=== PATIENT | female | born 1950 | race Caucasian/White ===

== ENCOUNTER 2017-11-25 22:34 | Inpatient (IN) | payer MEDICARE, OTHER ==
[~2017-11-25] VITALS: Ht 167.6 cm; Wt 106.2 kg
[2017-11-25 23:42] LABS: BASOPHILS % 0.2 % (0.0-1.0); EOSINOPHILS % 0.2 % (0.0-6.0); HEMATOCRIT 43.3 % (34.2-44.1); HEMOGLOBIN 14.6 g/dL (12.0-16.0); LYMPHOCYTES # (AUTO) 1.1 (1.0-3.2); LYMPHOCYTES % 8.6 % (18.0-39.1); MEAN CORPUSCULAR HEMOGLOBIN 28.6 pg (28-32); MEAN CORPUSCULAR HGB CONC 33.7 g/dL (31-35); MEAN CORPUSCULAR VOLUME 84.9 fL (81-99); MONOCYTES # (AUTO) 0.4 (0.2-0.8); MONOCYTES % 2.7 % (4.4-11.3); NEUTROPHILS # (AUTO) 11.6 (2.1-6.9); NEUTROPHILS % 87.9 % (38.7-80.0); PLATELET COUNT 227 x10e3/uL (140-360); RED CELL DISTRIBUTION WIDTH 12.4 % (11.7-14.4)
[2017-11-26] VITALS (9 sets, daily range): BP systolic 117–149; BP diastolic 58–95
[2017-11-26] LABS: ALANINE AMINOTRANSFERASE 23 IU/L (0-55); ALBUMIN 3.9 g/dL (3.5-5.0); ALKALINE PHOSPHATASE 88 IU/L (40-150); ANION GAP 17.6 mmol/L (8-16); BLOOD UREA NITROGEN 19 mg/dL (7-26); BUN/CREATININE RATIO 21 (6-25); CARBON DIOXIDE 24 mmol/L (22-29); CHLORIDE 97 mmol/L (98-107); CREATININE, SERUM 0.89 mg/dL (0.57-1.11); EST GLOMERULAR FILTRATION RATE > 60 ML/MIN (60-); GLUCOSE 375 mg/dL (74-118); MAGNESIUM 1.8 MG/DL (1.3-2.1); POTASSIUM 4.6 mmol/L (3.5-5.1); SODIUM 134 mmol/L (136-145)
[2017-11-26 00:02] LABS: BILIRUBIN,URINE NEGATIVE (NEGATIVE); CLARITY,URINE CLEAR (CLEAR); COLOR,URINE YELLOW (YELLOW); KETONES,URINE 2+ (NEGATIVE); LEUKOCYTE ESTERASE ,URINE NEGATIVE (NEGATIVE); NITRITE,URINE NEGATIVE (NEGATIVE); PROTEIN,URINE DIPSTICK TRACE (NEGATIVE); URINE UROBILINOGEN 0.2 mg/dL (0.2 - 1)
[2017-11-26] MEDS ORDERED: ONDANSETRON HCL INJ 2 MG/ML VIAL IV STA (00:10)
[2017-11-26] MEDS ORDERED: MORPHINE SULFATE 2 MG/ML SYR IV STA (00:10)
[2017-11-26] MEDS ORDERED: SODIUM CHLORIDE 0.9% 1000ML 1,000 ML IV STA (00:10)
[2017-11-26 00:15] LABS: BACTERIA,URINE RARE /HPF; EPITHELIAL CELLS,URINE RARE /LPF; RBC,URINE 21-50 /HPF (0-5)
[2017-11-26] MEDS ORDERED: KETOROLAC TROMETHAMINE 30 MG/ML VIAL IV STA (00:53)
--- NOTE | 2017-11-26 01:22 | Diagnostic Imaging Report ---
EXAM: CT ABDOMEN/PELVIS WO DATE: 11/26/2017 11:19 PM INDICATION: \S\LEFT FLAKN PAIN, SIG HX KIDNEY STONES \[id number] \S\0035 \S\Y COMPARISON: E4 2016 TECHNIQUE: The abdomen and pelvis were scanned using a multidetector helical scanner. Coronal and sagittal reformations were obtained. IV Contrast: 0 ml Isovue 300/370 FINDINGS: Lack of IV contrast decreases sensitivity in evaluating abdominal and pelvic organs. LOWER THORAX: No consolidations LIVER/BILIARY: Unremarkable noncontrast appearance. GALLBLADDER: Unremarkable SPLEEN: Nonenlarged. Incidental splenic granulomas. PANCREAS: Unremarkable ADRENALS: No nodules KIDNEYS: No right renal calculi or hydronephrosis. Punctate left inferior renal calculus. Mild left hydronephrosis related to a 1 cm proximal ureteral calculus (CC dimension, 4-5 mm axial dimension). Associated perinephric and inflammatory changes. GI TRACT: No wall thickening or evidence of obstruction. Normal appendix. VESSELS: Mild atherosclerotic calcifications. PERITONEUM/RETROPERITONEUM: No free air or fluid LYMPH NODES: No lymphadenopathy REPRODUCTIVE ORGANS/BLADDER: Hysterectomy. Decompressed bladder. SOFT TISSUES: Unremarkable BONES: Multilevel degenerative changes with grade 1 anterolisthesis of L4 over L5. IMPRESSION: Mild left hydronephrosis and inflammatory changes related to 1 cm proximal ureteral calculus. Signed by: Dr Jennifer Mesa MD on 11/26/2017 1:19 AM
[2017-11-26] MEDS ORDERED: DEXTROSE 50% SYRINGE 50 ML IV PRN (02:45)
[2017-11-26] MEDS ORDERED: MORPHINE SULFATE 2 MG/ML SYR IV PRN (02:45)
[2017-11-26] MEDS ORDERED: ONDANSETRON HCL INJ 2 MG/ML VIAL IV PRN (02:45)
[2017-11-26] MEDS: SODIUM CHLORIDE 0.9% 1000ML 1,000 ML IV SCH ×2 (05:00→21:58)
[2017-11-26] MEDS: INSULIN REGULAR, HUMAN 100 UNIT/1 ML 3ML VIAL SQ SCH ×4 (07:30→20:03)
--- NOTE | 2017-11-26 07:41 | Consultation ---
DATE OF CONSULTATION: November 26, 2017 UROLOGY CONSULTATION REASON FOR CONSULTATION: Kidney stones. HISTORY OF PRESENT ILLNESS: Ms. Macario is a very pleasant noncompliant 66-year-old female patient who I have seen previously in 2016. The patient was admitted to the hospital with acute sharp and severe left-sided flank pain. Was found to have a very large obstructing left ureteral calculus. She denied fevers nor chills. Denied nausea. No vomiting. PAST MEDICAL HISTORY: Multiple kidney stones, prior patient of Dr. Gonzalez and Dr. Berto Adames, as well as myself. Diabetes mellitus and kidney stones. PAST SURGICAL HISTORY: Hysterectomy and stone surgeries. MEDICATIONS: Please see MAR. ALLERGIES: NKDA. SOCIAL HISTORY: Denied smoking or drinking. FAMILY HISTORY: Denied urologic stones. No malignancies. REVIEW OF SYSTEMS: Noncontributory to the above. All 12 systems reviewed. PHYSICAL EXAMINATION GENERAL: Elderly female in no acute distress. VITALS: Currently, temperature 96.3, pulse 70, respirations 19, blood pressure 139/95. HEENT: Her sclerae are anicteric. NECK: Supple. BACK: With left-sided costovertebral angle tenderness bilaterally. ABDOMEN: Soft. It is nontender. It is nondistended. No palpable mass. No palpable hernias. No palpable lymphadenopathy. : Normal female external genitalia. EXTREMITIES: Without edema. No cyanosis or clubbing. PSYCH: Alert and appropriate mood. SKIN: Intact. Normal color. PERTINENT LABORATORY DATA: CT scan revealing a 1 cm proximal left ureteral calculus and left hydronephrosis. Urinalysis with 21-50 red blood cells per high power field, 3+ glucose, positive ketones. Sodium 134, potassium 4.6, chloride 97, bicarb 24, BUN 19, creatinine 0.99, glucose 375. White blood cell count 13,180, hemoglobin 14, hematocrit 43, and platelet count 227,000. IMPRESSION 1. Leukocytosis. 2. Renal colic. 3. Left hydronephrosis. 4. Left ureteral calculus. 5. Hyponatremia. 6. Hypertension. 7. Microscopic hematuria. 8. Glycosuria. PLAN: Trial of passage. Patient will need stenting. Thank you for allowing me to participate in the care of the patient. Will be happy to follow along with you. Job#: [id number] ELAINA
[2017-11-26 08:14] LABS: CHOL/HDL RATIO 4.6 (3.0-3.6)
[2017-11-26] MEDS ORDERED: MORPHINE SULFATE INJ 4 MG/ML INJ IV PRN (08:15)
--- NOTE | 2017-11-26 08:32 | History and Physical ---
PRIMARY CARE PHYSICIAN: None CHIEF COMPLAINT: Left flank pain. HISTORY OF PRESENT ILLNESS: This is a 66-year-old woman with a history of kidney stones now developing left flank and left abdominal pain that prompted her visit to the hospital. She also has nausea and vomiting. This is an ongoing problem for 1 day, but previously was intermittent for the past week. Here she was found to have ureterolithiasis and hydronephrosis, and admitted for further evaluation and management. PAST MEDICAL HISTORY: Diabetes mellitus, kidney stones. PAST SURGICAL HISTORY: Knee surgery, hysterectomy, kidney stones. ALLERGIES: PER ELECTRONIC MEDICAL RECORD. FAMILY HISTORY/SOCIAL HISTORY: Patient is . She has 3 children. No alcohol, illicits or cigarettes. MEDICATIONS: Per electronic medical record. REVIEW OF SYSTEMS: Denies any dizziness, chest pain, shortness of breath, fever, chills, sweats, nausea, vomiting, diarrhea, headache, leg pain. PHYSICAL EXAMINATION VITAL SIGNS: Reviewed. GENERAL: A tired-appearing woman resting in bed. HEENT: Anicteric. Pupils respond to light. No oral lesions. CARDIOVASCULAR: Normal S1 and S2. LUNGS: Moderate breath sounds. ABDOMEN: Soft and nondistended. She has mild tenderness in the left midabdomen. Left flank is tender. EXTREMITIES: No edema or calf tenderness. NEUROLOGICAL: Alert and oriented times 3. Moving all extremities. SKIN: Dry. PSYCHIATRIC: Flat affect. LABS: Reviewed. MEDICATIONS: Reviewed. ASSESSMENT: A 66-year-old woman with: 1. Left ureterolithiasis. 2. Left hydronephrosis. 3. Diabetes mellitus, type 2. 4. Obesity. 5. Left flank pain. PLAN 1. She has a 1 cm proximal ureteral stent on the left. Will continue IV fluids. Urology has been consulted. 2. Will obtain hemoglobin A1c and lipid panel. 3. Continue IV fluids. 4. Add Flomax. 5. Follow up urology recommendations. 6. Add SCDs for DVT prophylaxis. Job#: [id number] ELAINA
[2017-11-26] MEDS: TAMSULOSIN HCL 0.4 MG CAP PO SCH ×2 (09:00→20:03)
[2017-11-26] MEDS ORDERED: IOPAMIDOL 300MG/ML 50ML INFUS..BTL IV ONE (11:35)
[2017-11-26] MEDS ORDERED: INSULIN REGULAR, HUMAN 100 UNIT/1 ML 3ML VIAL ONE (11:56)
--- NOTE | 2017-11-26 13:23 | Operative Report ---
DATE OF PROCEDURE: November 26, 2017 PREOPERATIVE DIAGNOSES 1. Microscopic hematuria. 2. Left-sided hydronephrosis. POSTOPERATIVE DIAGNOSES 1. Microscopic hematuria. 2. Left-sided hydronephrosis. PROCEDURES 1. Cystourethroscopy with right ureteral catheterization and right retrograde pyelogram (entirely separate procedure for diagnosis of microscopic hematuria). 2. Cystourethroscopy with insertion of a left indwelling ureteral stent (entirely separate procedure for the diagnosis of left hydronephrosis). 3. Supervision of fluoroscopy. 4. Interpretation of retrograde pyelography. ANESTHESIA: General. ESTIMATED BLOOD LOSS: Minimal. COMPLICATIONS: None. INDICATIONS FOR PROCEDURE: Ms. Macario is a very pleasant, 66-year-old female with a history of renal calculus. She and I had a long discussion regarding the alternatives, risks and benefits, including doing nothing, stent placement, percutaneous nephrostomy. She voiced an understanding of the options, the alternatives, and the risks and benefits, and she elected to proceed with stent, voicing an explicit understanding that the stent is a temporary indwelling device and must be removed. Failure to do so could lead to encrustation, infection, inflammation, actual loss of the kidney and even . She elected to proceed. PROCEDURE IN DETAIL: After informed consent was obtained, the patient was taken to the operative suite and placed supine on the operating table. She underwent general anesthesia by the anesthesia service. She was placed in the dorsal lithotomy position. She was sterilely prepped and draped in the standard fashion for cystoscopy. A 22.5-Finnish cystoscope was inserted per urethra. A normal urethra was noted. Panendoscopy of the bladder revealed no tumors and no stones. Both ureteral orifices were in their normal anatomic location and position, and only the right was seen to efflux urine. Bilateral retrograde pyelograms were performed. The right was normal. The left revealed a very large, approximately 1 cm, proximal filling defect and mild left hydronephrosis. A 6 x 24 ureteral stent was deployed with a coil in the UPJ and a coil in the bladder. The bladder was drained. The patient was awakened from anesthesia and transported to the recovery room in excellent condition. SUPERVISION OF FLUOROSCOPY AND INTERPRETATION OF RETROGRADE PYELOGRAPHY: I was present throughout the entire procedure and supervised the use of fluoroscopy. There was no radiologist present. Attention was turned to the left ureteral orifice and right ureteral orifice, which were catheterized with a 5-Finnish, open-ended catheter. Retrograde pyelogram was performed. The right revealed delicate ureter and delicate pelvicaliceal system. The left revealed a 1-cm proximal ureteral filling defect and stent in good position. IMPRESSION 1. Left proximal ureteral calculus poorly visualized. 2. Hydronephrosis. 3. Left ureteral stent in good position. 4. Normal right retrograde pyelogram. Job#: [id number]
[2017-11-26] MEDS ORDERED: PROPOFOL IV EMULSION 10 MG/ML 50 ML VIAL ONE (17:09)
[2017-11-26] MEDS ORDERED: LIDOCAINE HCL 2% LOCAL INJ 5 ML SDV VIAL INJ ONE (17:09)
[2017-11-26] MEDS ORDERED: MIDAZOLAM HCL 2 MG/2 ML VIAL ONE (17:23)
[2017-11-27 04:54] VITALS: BP 147/67
[2017-11-27 05:09] LABS: BASOPHILS % 0.4 % (0.0-1.0); EOSINOPHILS # (AUTO) 0.1 (0.0-0.4); EOSINOPHILS % 1.9 % (0.0-6.0); HEMATOCRIT 36.3 % (34.2-44.1); HEMOGLOBIN 11.8 g/dL (12.0-16.0); LYMPHOCYTES # (AUTO) 2.7 (1.0-3.2); MEAN CORPUSCULAR HEMOGLOBIN 28.5 pg (28-32); MEAN CORPUSCULAR HGB CONC 32.5 g/dL (31-35); MEAN CORPUSCULAR VOLUME 87.7 fL (81-99); MONOCYTES # (AUTO) 0.4 (0.2-0.8); NEUTROPHILS # (AUTO) 3.6 (2.1-6.9); NEUTROPHILS % 52.4 % (38.7-80.0); PLATELET COUNT 166 x10e3/uL (140-360); RED BLOOD COUNT 4.14 x10e6/uL (3.6-5.1); RED CELL DISTRIBUTION WIDTH 12.9 % (11.7-14.4)
[2017-11-27 05:40] LABS: ANION GAP 13.6 mmol/L (8-16); BLOOD UREA NITROGEN 12 mg/dL (7-26); BUN/CREATININE RATIO 18 (6-25); CALCIUM 8.5 mg/dL (8.4-10.2); CARBON DIOXIDE 25 mmol/L (22-29); CHLORIDE 107 mmol/L (98-107); CREATININE, SERUM 0.65 mg/dL (0.57-1.11); EST GLOMERULAR FILTRATION RATE > 60 ML/MIN (60-); GLUCOSE 191 mg/dL (74-118); POTASSIUM 3.6 mmol/L (3.5-5.1); SODIUM 142 mmol/L (136-145)
[2017-11-27] MEDS: INSULIN REGULAR, HUMAN 100 UNIT/1 ML 3ML VIAL SQ SCH ×3 (07:30→16:30)
[2017-11-27] MEDS ORDERED: DEXTROSE 50% SYRINGE 50 ML IV PRN (08:15)
--- NOTE | 2017-11-27 08:21 | Progress Note ---
DATE: November 27, 2017 TIME: 7:59 a.m. OVERNIGHT: No events. REVIEW OF SYSTEMS: Denies any dizziness, chest pain, shortness of breath, fever, chills, sweats, nausea, vomiting, diarrhea, back pain, headache, blurred vision. VITAL SIGNS: Reviewed. PHYSICAL EXAMINATION GENERAL: A tired-appearing woman resting in bed. HEENT: Anicteric. CARDIOVASCULAR: Normal S1 and S2. LUNGS: Moderate breath sounds. ABDOMEN: Soft. Left flank tenderness is less. EXTREMITIES: No edema or calf tenderness. NEUROLOGICAL: Alert and oriented times 3. Moving all extremities. SKIN: Dry. PSYCHIATRIC: Flat affect. LABS: Reviewed. MEDICATIONS: Reviewed. ASSESSMENT: A 66-year-old woman. 1. Left ureterolithiasis. 2. Left hydronephrosis. 3. Diabetes mellitus, type 2. Hemoglobin A1c 11.8, low-density lipoprotein 128, and triglycerides 235. 4. Obesity. 5. Left flank pain. 6. Hyperlipidemia. PLAN 1. Continue IV fluids. 2. Follow up urology recommendations. 3. Continue Flomax. 4. Will add statin for hyperlipidemia. 5. Will also plan to start metformin upon discharge. In the meantime, will use sliding-scale insulin. Will use a diabetic diet. Job#: [id number]
[2017-11-27] MEDS ORDERED: NIFEDIPINE CR 30 MG TAB PO SCH (09:00)
[2017-11-27 09:05] VITALS: BP 161/67
[2017-11-27] MEDS: TAMSULOSIN HCL 0.4 MG CAP PO SCH (09:21)
[2017-11-27] MEDS: SODIUM CHLORIDE 0.9% 1000ML 1,000 ML IV SCH (09:21)
[2017-11-27 09:45] VITALS: BP 161/68
[2017-11-27] MEDS ORDERED: INSULIN REGULAR, HUMAN 100 UNIT/1 ML 3ML VIAL SQ SCH (11:30)
[2017-11-27] MEDS ORDERED: METFORMIN HCL 500 MG TAB PO SCH (17:00)
[2017-11-27 17:43] VITALS: BP 158/67
[2017-11-27] MEDS ORDERED: PRAVASTATIN 20 MG TAB PO SCH (21:00)
== END 2017-11-27 17:55 | disposition home or self-care (01) | DRG 660 ==
LOC: ER 22:34 → ERHOLD 11-26 03:35 → MED/SURG2 11-26 04:33
PROVIDERS: ADMIT Internal Medicine; ATTEND Internal Medicine
PROC: 0T768ZZ Dilation of Right Ureter, Via Natural or Artificial Opening Endoscopic (ICD-10-PCS; 2017-11-26)
PROC: BT141ZZ Fluoroscopy of Kidneys, Ureters and Bladder using Low Osmolar Contrast (ICD-10-PCS; 2017-11-26)
PROC: 0T9B8ZZ Drainage of Bladder, Via Natural or Artificial Opening Endoscopic (ICD-10-PCS; 2017-11-26)
PROC: 0T778DZ Dilation of Left Ureter with Intraluminal Device, Via Natural or Artificial Opening Endoscopic (ICD-10-PCS; principal; 2017-11-26 12:05)
DX: N13.2 Hydronephrosis with renal and ureteral calculous obstruction (principal); E87.1 Hypo-osmolality and hyponatremia; E11.65 Type 2 diabetes mellitus with hyperglycemia; E66.9 Obesity, unspecified; Z68.37 Body mass index [BMI] 37.0-37.9, adult; E78.5 Hyperlipidemia, unspecified; Z87.442 Personal history of urinary calculi; R31.29 Other microscopic hematuria; I10 Essential (primary) hypertension
CPT/HCPCS: 36415; 74176; 74420; 80048; 80053; 80061; 81001; 82948; 83036; 83735; 85025; 87086; 96374; 96375; 99284; C1874; J1885; J2001; J2250; J2270; J2405; J7030

== ENCOUNTER → 2017-12-06 | Day surgery (SDC) | payer MEDICARE, OTHER ==
[2017-12-05 11:23] LABS: BASOPHILS % 0.3 % (0.0-1.0); EOSINOPHILS # (AUTO) 0.2 (0.0-0.4); EOSINOPHILS % 2.2 % (0.0-6.0); HEMATOCRIT 41.3 % (34.2-44.1); HEMOGLOBIN 13.5 g/dL (12.0-16.0); LYMPHOCYTES # (AUTO) 2.4 (1.0-3.2); LYMPHOCYTES % 33.1 % (18.0-39.1); MEAN CORPUSCULAR HEMOGLOBIN 28.6 pg (28-32); MEAN CORPUSCULAR HGB CONC 32.7 g/dL (31-35); MEAN CORPUSCULAR VOLUME 87.5 fL (81-99); MONOCYTES # (AUTO) 0.5 (0.2-0.8); MONOCYTES % 6.6 % (4.4-11.3); NEUTROPHILS # (AUTO) 4.1 (2.1-6.9); NEUTROPHILS % 57.7 % (38.7-80.0); PLATELET COUNT 218 x10e3/uL (140-360); RED BLOOD COUNT 4.72 x10e6/uL (3.6-5.1); RED CELL DISTRIBUTION WIDTH 12.5 % (11.7-14.4)
--- NOTE | 2017-12-05 15:27 | Diagnostic Imaging Report ---
EXAMINATION: PA and lateral views of the chest. COMPARISON: None CLINICAL HISTORY: Preadmit for left stent removal DISCUSSION: Lines/tubes: None. Lungs: The lungs are well inflated and clear. There is no evidence of pneumonia or pulmonary edema. Pleura: There is no pleural effusion or pneumothorax. Heart and mediastinum: Cardiomediastinal silhouette is unremarkable. Pulmonary vasculature is normal. Bones and soft tissues: No acute bony abnormalities. Mild age-appropriate degenerative changes in the thoracic spine IMPRESSION: No acute cardiopulmonary abnormalities. Signed by: Dr. Sonny Russ M.D. on 12/05/2017 3:23 PM
[~2017-12-06] MED LIST: ACETAMINOPHEN 1000 MG/100 ML 100 ML IV ONE; ADVIL; ASPIRIN81 MG; CEFTRIAXONE SOD 1 GM VIAL ONE; DEXAMETHASONE SOD PHOS INJ 4 MG/ML VIAL ONE; FENTANYL CITRATE/PF 100MCG/2 ML INJ ONE; HYDROMORPHONE 1MG/1ML INJ ONE; IOPAMIDOL 300MG/ML 50ML INFUS..BTL IV ONE; LIDOCAINE HCL 2% LOCAL INJ 5 ML SDV VIAL INJ ONE; METOCLOPRAMIDE HCL 10 MG/2ML VIAL ONE; MIDAZOLAM HCL 2 MG/2 ML VIAL ONE; MORPHINE SULFATE 2 MG/ML SYR ONE; MULTIVITAMINS1 EAC7; ONDANSETRON HCL INJ 2 MG/ML VIAL ONE; PROPOFOL IV EMULSION 10 MG/ML 20 ML VIAL ONE; SEVOFLURANE INHAL SOLN 250 ML PEN BTL ONE
[2017-12-06 13:40] VITALS: BP 154/69
--- NOTE | 2017-12-06 15:10 | Operative Report ---
PREOPERATIVE DIAGNOSES 1. Indwelling left ureteral stent. 2. Left ureteral calculus. 3. Left hydronephrosis. POSTOPERATIVE DIAGNOSES 1. Indwelling left ureteral stent. 2. Left ureteral calculus. 3. Left hydronephrosis. PROCEDURES 1. Cystourethroscopy with complicated removal of left ureteral stent (entirely separate procedure for encrusted left ureteral stent). 2. Left-sided ureteroscopy with laser lithotripsy (entirely separate procedure for left ureteral calculus). 3. Supervision of fluoroscopy. 4. Interpretation of retrograde pyelography. ANESTHESIA: General. ESTIMATED BLOOD LOSS: Minimal. COMPLICATIONS: None. INDICATIONS: Ms. Macario is a 66-year-old female, presenting with left ureteral stent and stone. She and I had a long discussion regarding the alternatives, risks and benefits, including doing nothing, shock-wave lithotripsy, ureteroscopy, percutaneous surgery, open surgery. She voiced understanding of the options, alternatives, risks and benefits, and elected to proceed. PROCEDURE IN DETAIL: After informed consent was obtained, the patient was taken to the operative suite, placed supine on the operating table and underwent general anesthesia by the anesthesia service. She was then placed in the dorsal lithotomy position and sterilely prepped and draped in the standard fashion for cystoscopy. A 22.5-Malay cystoscope was inserted per urethra and a normal urethra was noted. Panendoscopy of the bladder revealed no tumors. Stent was seen extruding from the left ureteral orifice, grasped and attempt made to catheterize was failed. Guidewire was inserted per ureteral orifice seen to coil at the level of the renal pelvis on nephroscopy. The ureteroscope was driven to the level of the offending ureteral stone and with 365 micron laser fiber stone was obliterated, fragments smaller within the ureteroscope. A retrograde pyelogram was performed through the scope revealing no evidence of obstruction, collecting system drained promptly. Safety wire was removed. Bladder was drained. The patient was awoken from anesthesia and transported to the recovery room in excellent condition. SUPERVISION OF FLUOROSCOPY AND INTERPRETATION OF RETROGRADE PYELOGRAPHY: I was present throughout the entire procedure, and supervised the use of fluoroscopy as there was no radiologist present at any time in this procedure. Attention was turned toward the left ureteral orifice, catheterized and a retrograde pyelogram was performed revealing interim removal of left ureteral stent, doubt ureter, and removal of left ureteral calculus, promptly drains collecting system. Job#: [id number] RTY
== END | disposition home or self-care (01) ==
LOC: OR 05:43
PROVIDERS: ATTEND Urology
DX: Z96.0 Presence of urogenital implants (principal); N13.2 Hydronephrosis with renal and ureteral calculous obstruction; E11.9 Type 2 diabetes mellitus without complications; K21.9 Gastro-esophageal reflux disease without esophagitis; Z01.810 Encounter for preprocedural cardiovascular examination; Z01.812 Encounter for preprocedural laboratory examination; Z01.811 Encounter for preprocedural respiratory examination
CPT/HCPCS: 36415 ×2; 52315; 52353; 71046; 74420; 82948; 85025; 93005; J0696; J1100; J1170; J2001; J2250; J2270; J2405; J2765; Q9967

== ENCOUNTER 2018-12-13 23:22 | Observation (INO) | payer MEDICARE, OTHER ==
[~2018-12-13] VITALS: Ht 167.6 cm; Wt 96.0 kg
[~2018-12-13 23:22] MED LIST changes: -ACETAMINOPHEN 1000 MG/100 ML 100 ML IV ONE; -CEFTRIAXONE SOD 1 GM VIAL ONE; -DEXAMETHASONE SOD PHOS INJ 4 MG/ML VIAL ONE; -FENTANYL CITRATE/PF 100MCG/2 ML INJ ONE; -HYDROMORPHONE 1MG/1ML INJ ONE; -IOPAMIDOL 300MG/ML 50ML INFUS..BTL IV ONE; -LIDOCAINE HCL 2% LOCAL INJ 5 ML SDV VIAL INJ ONE; -METOCLOPRAMIDE HCL 10 MG/2ML VIAL ONE; -MIDAZOLAM HCL 2 MG/2 ML VIAL ONE; -MORPHINE SULFATE 2 MG/ML SYR ONE; -ONDANSETRON HCL INJ 2 MG/ML VIAL ONE; -PROPOFOL IV EMULSION 10 MG/ML 20 ML VIAL ONE; -SEVOFLURANE INHAL SOLN 250 ML PEN BTL ONE
--- OUTSIDE RECORDS SUMMARY | 2018-12-13 23:25 | XMS REPORT | Summary of Care ---
Author Author [facility] - Health Organization [facility] Address Unknown Phone Unavailable Care Team Providers Care Teamcenter Solution Architect Name Role Phone Pcp, Patient Does Not Have A PCP Reason for Referral * (Routine) Referred By Contact Referred To Contact Status Reason Specialty Diagnoses / Procedures Nivia Russo FNP [id number] [address] New Request Cardiology Diagnoses Elevated blood pressure reading without diagnosis of hypertension Heart murmur P rocedures CONSULT/REFERRAL CARDIOLOGY Reason for Visit * Reason Comments Rash vagina Encounter Details Care Team Description Date Type Department Nivia Russo FNP [id number] [address] Rash and other nonspecific skin eruption (Primary Dx); Elevated blood pressure reading without diagnosis of hypertension; Dysuria; Heart murmur; Glucose found in urine on examination; Postmenopausal atrophic vaginitis; Vaginal irritation; Asymptomatic microscopic hematuria 10/27/2018 Office Visit [facility], [address], [address] [place] [address] Allergies Comments Active Allergy Reactions Severity Noted Date Codeine Nausea and/or 10/27/2018 Vomiting documented as of this encounter (statuses as of 11/11/2018) Medications End Date Status Medication Sig Dispensed Refills Start Date Active VIT Take by 0 A,C,P-GLML-QZMGMZ-LUT-NAVDEEP mouth. X ORAL Active cholecalciferol, vitamin Take by 0 D3, (D3-2000 ORAL) mouth. Active Multivitamins with Take by 0 Fluoride (MULTI-VITAMIN mouth. ORAL) documented as of this encounter (statuses as of 11/11/2018) Active Problems No known active problemsdocumented as of this encounter (statuses as of 11/11/2018) Social History Date Tobacco Use Types Packs/Day Years Used Never Smoker Smokeless Tobacco: Never Used Drinks/Week oz/Week Comments Alcohol Use Never Alcohol Habits Answer Date Recorded How often do you have a drink containing alcohol? Never 10/27/2018 How many drinks containing alcohol do you have on Not asked a typical day when you are drinking? How often do you have six or more drinks on one Not asked occasion? Sex Assigned at Date Recorded Not on file Industry Job Start Date Occupation Not on file Not on file Not on file Travel End Travel History Travel Start No recent travel history available. documented as of this encounter Last Filed Vital Signs Reading Time Taken Comments Vital Sign 146/73 10/27/2018 8:29 AM CDT Blood Pressure 76 10/27/2018 8:24 AM CDT Pulse - - Temperature - - Respiratory Rate - - Oxygen Saturation - - Inhaled Oxygen Concentration 98 kg (216 lb) 10/27/2018 8:24 AM CDT Weight 167.6 cm (5' 6") 10/27/2018 8:24 AM CDT Height 34.86 10/27/2018 8:24 AM CDT Body Mass Index documented in this encounter Patient Instructions * Patient Instructions* Nivia Russo, NIDIA - 10/27/2018 8:30 AM CDT Taking Your Blood Pressure Blood pressure is the force of blood against the artery wall as it moves from th e heart through the blood vessels. You can take your own blood pressure reading using a digital monitor. Take your readings the same each time, using the same a rm. Take readings as often as your healthcare provider instructs. About blood pressure monitors Blood pressure monitors are designed for certain ages and cases. You can find mo nitors for older adults, for women, and for children. Make sure the one you choose is the right one for your age and situation. The [employer] [employer] recommends an automatic cuff monitor that fits on your upper arm (bicep). The cuff should fit your arm size. A cuff thats too large or too small will not give an accurate reading. Measure around your upper arm to find your size. Monitors that attach to your finger or wrist are not as accurate as monitors for your upper arm. Ask your healthcare provider for help in choosing a monitor. Bring your monitor to your next provider visit if you need help in using it the correct way. The steps below are general instructions for using an automatic digital monitor. Step 1. Relax Take your blood pressure at the same time every day, such as in the morning o r evening, or at the time your healthcare provider recommends. Wait at least a half-hour after smoking, eating, or exercising. Don't drink c offee, tea, soda, or other caffeinated beverages before checking your blood pres sure. Sit comfortably at a table with both feet on the floor. Do not cross your leg s or feet. Place the monitor near you. Rest for a few minutes before you begin. Step 2. Wrap the cuff Place your arm on the table, palm up. Your arm should be at the level of your heart. Wrap the cuff around your upper arm, just above your elbow. Its best done on bare skin, not over clothing. Most cuffs will indicate where the brachia l artery (the blood vessel in the middle of the arm at the inner side of the elb ow) should line up with the cuff. Look in your monitor's instruction booklet for an illustration. You can also bring your cuff to your healthcare provider and h ave them show you how to correctly place the cuff. Step 3. Inflate the cuff Push the button that starts the pump. The cuff will tighten, then loosen. The numbers will change. When they stop changing, your blood pressure reading will appear. Take 2 or 3 readings one minute apart. Step 4. Write down the results of each reading Write down your blood pressure numbers for each reading. Note the date and ti me. Keep your results in one place, such as a notebook. Even if your monitor has a built-in memory, keep a hard copy of the readings. Remove the cuff from your arm. Turn off the machine. Bring your blood pressure records with your healthcare providers at each visi t. If you start a new blood pressure medicine, note the day you started the new medicine. Also note the day if you change the dose of your medicine. This inform ation goes on your blood pressure recording sheet. This will help your healthcar e provider monitor how well the medicine changes are working. Ask your healthcare provider what numbers should prompt you to call him or he r. Also ask what numbers should prompt you to get help right away. Date Last Reviewed: 02/07/201619997755-3222 [employer]. [address] [place] [address]00 7. All rights reserved. This information is not intended as a substitute for pro fessional medical care. Always follow your healthcare professional's instruction s. Atrophic Vaginitis Atrophic vaginitis means the de la cruz of your vagina have become thin. This happens when your body makes too little of the hormone estrogen. Menopause or surgical removal of the ovaries are the most common causes for a drop in estrogen. Breast feeding can also cause the hormone level to drop. Symptoms of atrophic vaginitis include: Dryness, soreness, burning, or itching in the vagina Vaginal discharge Sex can be uncomfortable, even painful. After sex, you may have bleeding from yo ur vagina. You may also have burning or pain when you urinate. Home care Your healthcare provider may recommend 1 or more of these as treatment: Vaginal creams, lotions, and lubricants.These products help relieve vaginal dryness. They dont need a prescription. They can be found in the personal ca re section of most pharmacies. Creams and lotions are used daily to help keep th e vagina moist. Lubricants help reduce dryness and pain during sex. Choose water -based lubricants. Dont use petroleum jelly, mineral oil, or other oils. Thes e increase the chance of infection. Hormone therapy (HT).HT increases the amount of estrogen in your body. This can help manage or relieve symptoms. HT can be given in pill form. It may be gi harley as a lotion, cream, ring put into the vagina, or a patch on the skin. The ri sks and benefits of HT vary for each woman. For instance, your risk may be highe r if you have had breast cancer. Discuss this treatment with your healthcare pro vider. Not every woman can use HT. You dont need to give up (abstain from) sex. In fact, regular sex can help ke ep vaginal tissues healthy. Take steps to make sex more comfortable by using dexter er-based lubricants. Preventing infections Atrophic vaginitis makes an infection of the vagina or the urinary tract more li zahida. To help reduce your risk: Keep your genitals clean. When you bathe, wash the outside of your vagina wit h mild soap and water. Clean gently between the folds of your vagina. Wipe from front to back after a bowel movement. Dont douche unless your healthcare provider tells you to. Avoid scented toilet paper, scented vaginal sprays, and scented tampons. Avoid wearing clothes that are tight in the crotch. These include pantyhose, jeans, and leggings. Wear cotton underwear. Change it every day. Follow-up care Follow up with your healthcare provider, or as advised. When to seek medical advice Call your health care provider right away if any of these occur: Fever of 100.4F (38C) or higher, or as directed by your healthcare provid er Symptoms dont go away or get worse even with treatment Vaginal area swells or becomes painful Vaginal area bleeds, but not because of your period Bad-smelling discharge from the vagina Pain or burning when you urinate or you have trouble passing urine Open sores develop around vagina Date Last Reviewed: 03/08/201619998359-4606 [employer]. [address] [place] [address] 7. All rights reserved. This information is not intended as a substitute for pro fessional medical care. Always follow your healthcare professional's instruction s. documented in this encounter Progress Notes * Nivia Russo FNP - 10/27/2018 8:30 AM CDT Cc: Chief Complaint Patient presents with Rash vagina HPI Ana Macario is a 67 year old female she has a past medical history of Breast mass (1979) and Kidney stones. She is here today for rash and irritation around the vulva. She denies vaginal d ischarge and vaginal burning, but admits to vaginal dryness. Has some pain with urination. Denies abdominal pain, low back pain, n/v/d, fever. She has tried mon istat OTC 3 day treatment without relief. No other topical treatments. Her BP is elevated today. Denies history of HTN. Denies chest pain, blurred visi on, GAR, dizziness, fatigue, swelling in legs/feet. Has family history of heart d isease. She does not have a PCP. Does not get regular preventative care. Last mammogram was 20 years ago and last colonoscopy was "a long time ago". Allergies Ana is allergic to codeine. Medications Outpatient Medications Prior to Visit Medication Sig Dispense Refill cholecalciferol, vitamin D3, (D3-2000 ORAL) Take by mouth. Multivitamins with Fluoride (MULTI-VITAMIN ORAL) Take by mouth. VIT A,C,A-CANP-UHLQWJ-LUT-ZEAX ORAL Take by mouth. No facility-administered medications prior to visit. Histories Past Medical History: Diagnosis Date Breast mass 1979 benign Kidney stones 6 or 7 times , first 2 surgical removed Past Surgical History: Procedure Laterality Date KNEE ARTHROSCOPY VA REMOVAL OF KIDNEY STONE 1969 x 2 TOTAL ABDOMINAL HYSTERECTOMY W/BSO (SHX) bleeding / age 41 US CORE BIOPSY age 41 - benign Social History Socioeconomic History Marital status: Spouse name: Not on file Number of children: Not on file Years of education: Not on file Highest education level: Not on file Occupational History Not on file Social Needs Financial resource strain: Not on file Food insecurity: Worry: Not on file Inability: Not on file Transportation needs: Medical: Not on file Non-medical: Not on file Tobacco Use Smoking status: Never Smoker Smokeless tobacco: Never Used Substance and Sexual Activity Alcohol use: Never Frequency: Never Drug use: Never Sexual activity: Not Currently Partners: Male Lifestyle Physical activity: Days per week: Not on file Minutes per session: Not on file Stress: Not on file Relationships Social connections: Talks on phone: Not on file Gets together: Not on file Attends amish service: Not on file Active member of club or organization: Not on file Attends meetings of clubs or organizations: Not on file Relationship status: Not on file Intimate partner violence: Fear of current or ex partner: Not on file Emotionally abused: Not on file Physically abused: Not on file Forced sexual activity: Not on file Other Topics Concern Not on file Social History Narrative Not on file Family History Problem Relation Age of Onset Hypertension Mother Heart Mother Breast Cancer Sister dx age early 30 Diabetes Maternal Grandfather type 1/type 2- not sure Review of Systems Constitutional: Negative for chills, fatigue and fever. HENT: Negative. Eyes: Negative for visual disturbance. Respiratory: Negative for cough, shortness of breath and wheezing. Cardiovascular: Negative for chest pain, palpitations and leg swelling. Gastrointestinal: Negative for abdominal pain, constipation, diarrhea, nausea an d vomiting. Genitourinary: Positive for dysuria. Negative for frequency, hematuria, flank pa in, decreased urine volume, vaginal bleeding, vaginal discharge, difficulty urin ating, vaginal pain and pelvic pain. Skin: Positive for rash. Negative for wound. Neurological: Negative for dizziness and headaches. Endocrine: Endocrine negative Vital Signs BP (!) 146/73 | Pulse 76 | Ht 5' 6" (1.676 m) | Wt 216 lb (98 kg) | BMI 34.8 6 kg/m Physical Exam Constitutional: She is oriented to person, place, and time. She appears well-dev eloped and well-nourished. No distress. HENT: Head: Normocephalic and atraumatic. Right Ear: External ear normal. Left Ear: External ear normal. Mouth/Throat: Oropharynx is clear and moist. Eyes: Pupils are equal, round, and reactive to light. Conjunctivae and EOM are n ormal. Neck: Normal range of motion. Neck supple. Cardiovascular: Normal rate, regular rhythm and normal pulses. Murmur heard. Pulmonary/Chest: Effort normal and breath sounds normal. She has no wheezes. She has no rales. Abdominal: Soft. Bowel sounds are normal. She exhibits no mass. There is no rebo und and no guarding. Genitourinary: Pelvic exam was performed with patient supine. There is rash on t he right labia. There is no tenderness, lesion or injury on the right labia. The re is rash on the left labia. There is no tenderness, lesion or injury on the le ft labia. There is erythema in the vagina. No tenderness in the vagina. Vaginal discharge (scant amount of white discharge) found. Neurological: She is alert and oriented to person, place, and time. Skin: Skin is warm and dry. Capillary refill takes less than 2 seconds. Psychiatric: She has a normal mood and affect. Her behavior is normal. Judgment and thought content normal. Nursing note and vitals reviewed. No results found for: POCTUSG No results found for: POCTUPH POCT U LEUK EST (no units) Date Value 10/27/2018 neg POCT U NIT (no units) Date Value 10/27/2018 neg POCT U PROT (no units) Date Value 10/27/2018 neg POCT U GLU (no units) Date Value 10/27/2018 2+ POCT U KETONE (no units) Date Value 10/27/2018 neg No results found for: POCTUURO No results found for: POCTUBIL POCT U BLD (no units) Date Value 10/27/2018 trace Assessment/Plan Ana was seen today for rash. Diagnoses and all orders for this visit: Rash and other nonspecific skin eruption - POCT URINALYSIS, INSTRUMENT Elevated blood pressure reading without diagnosis of hypertension - CONSULT/REFERRAL CARDIOLOGY Dysuria - URINE CULTURE Heart murmur - CONSULT/REFERRAL CARDIOLOGY No history of heart murmur before. Advised she keep a BP log and bring it with her to the warp hand. Glucose found in urine on examination Strongly advised she make appointment with primary care for routine blood work, screening for diabetes and to update preventative care. Postmenopausal atrophic vaginitis Will send off vaginal specimen to determine if there is overgrowth of bacteria or yeast. Suspect it may be just atrophic vaginitis. She is to try OTC ky jelly or coconut oil for symptoms. Vaginal irritation - [facility] ONLY - VAGINAL PATHOGENS BY DNA PROBE; Future Appropriate plan of care, desired health behaviors, goals, and medications discu ssed with patient. Educational resources and self management tools provided, as applicable. Patient verbalizes understanding. As necessary, prescribed mediations and potential adverse reactions/side effects /medication interactions were discussed with the patient, and the patient will n otify me if any occur. Follow up or report to ER if symptoms should progress or worsen. The patient indicates understanding and agrees with POC. Barriers to adherence: None Ability to manage care: Good AVS printed and given to patient. NIDIA Pulliam 10/27/2018 9:27 AM This visit did not involve counseling and coordination that comprised more than 50% of the visit time. * Ansley Melton MA - 10/27/2018 8:30 AM CDT PT presents today with a vaginal rash that is itchy onset 4-6 weeks ago PT states has not looked at area. PT denies any discharge or odor . PT reports when urinating skin area machado . PT used monistat 1 day 4 weeks ago and monistat 3 day 3 weeks ago and has no rel ief . PT is not sexually active documented in this encounter Plan of Treatment Care Team Description Date Type Specialty Kaleb Montague MD [address] [place] [address]. [place] [address] [phone] 01/08/2019 Office Visit Cardiology Date/Time Name Type Priority Associated Diagnoses 10/27/2018 9:06 AM CDT URINE CULTURE LAB Routine Dysuria Health Maintenance Due Date Last Done Comments HEPATITIS C (HCV) SCREEN 1951 DTaP,Tdap,and Td Vaccines 12/08/1970 (1 - Tdap) MAMMOGRAM 1991 COLONOSCOPY 12/08/2001 Zoster Recombinant 12/08/2001 Vaccine (SHINGRIX) (1 of 2) Medicare Wellness Visit 12/08/2016 Osteoporosis Screening 12/08/2016 PNEUMOCOCCAL VACCINES 65+ 12/08/2016 (1 of 2 - PCV13) INFLUENZA VACCINE 12/07/2018 documented as of this encounter Procedures Comments Procedure Name Priority Date/Time Associated Diagnosis [facility] ONLY - VAGINAL Routine 10/27/2018 Vaginal irritation PATHOGENS BY DNA PROBE 9:36 AM CDT POCT URINALYSIS AUTO Routine 10/27/2018 Rash and other nonspecific skin eruption documented in this encounter Results * [facility] ONLY - VAGINAL PATHOGENS BY DNA PROBE (10/27/2018 9:36 AM CDT) Trichomonas Negative Negative [facility] Gardnerella Negative Negative [facility] Yarelis species Negative Negative [facility] Specimen Fluid - VAGINA Performing Organization Address City/State/Zipcode Phone Number [facility] CLIA: [id number], [address] [place] [address] [facility] * POCT URINALYSIS, INSTRUMENT (10/27/2018) POCT U SP GRAV 1.005 - 1.025 mg/dl POCT PH U 5 - 8 mg/dl POCT U LEUK EST neg Negative - Negative POCT U NIT neg Negative - Negative POCT U PROT neg Negative - Negative POCT U GLU 2+ Negative - Negative POCT U KETONE neg Negative - Negative POCT U UROBILI 0.2 - 1 mg/dl POCT U BILI Negative - Negative POCT U BLD trace Negative - Negative POCT U COLOR POCT U APPEAR Specimen Urine - URINE, UNSPECIFIED SOURCE documented in this encounter Visit Diagnoses Diagnosis Rash and other nonspecific skin eruption - Primary Elevated blood pressure reading without diagnosis of hypertension Dysuria Heart murmur Undiagnosed cardiac murmurs Glucose found in urine on examination Glycosuria Postmenopausal atrophic vaginitis Vaginal irritation Unspecified noninflammatory disorder of vagina Asymptomatic microscopic hematuria documented in this encounter Insurance Type Payer Benefit Subscriber ID Effective Phone Address Plan / Dates Group Medicare MEDICARE MEDICARE xxxxxxxxxxx 2016-P [phone] [id number] [place] [id number] documented as of this encounter
[2018-12-13] MEDS ORDERED: NITROGLYCERIN 0.4 MG SUBL SL PRN (23:45)
[2018-12-13] MEDS ORDERED: HEPARIN SOD (PORCINE) 5,000 UNIT/ML VIAL SC ONE (23:45)
[2018-12-13] MEDS ORDERED: MORPHINE SULFATE INJ 4 MG/ML INJ 1ML IV PRN (23:45)
[2018-12-13] MEDS ORDERED: ASPIRIN 325 MG TAB PO ONE (23:45)
[2018-12-14] MEDS ORDERED: IOPAMIDOL 370 MG/ML 200 ML INFUS..BTL INJ ONE (00:10)
[2018-12-14] MEDS ORDERED: SODIUM CHLORIDE 0.9% 50ML 50 ML ONE (00:10)
--- NOTE | 2018-12-14 01:17 | Diagnostic Imaging Report ---
CT chest pulmonary embolism protocol CPT code: 35807 INDICATION: Chest pain and tightness TECHNIQUE: Thin collimation axial images obtained through the level of the pulmonary arteries with additional imaging through the chest following the uneventful administration of 100 cc of low osmolar, nonionic intravenous contrast. Images reconstructed into coronal and sagittal MIPs for complete evaluation of the tortuous and overlapping pulmonary vascular structures and to reduce patient radiation dose. RADIATION DOSE: Total DLP: 489.4 mGy*cm Estimated effective dose: (DLP x 0.015 x size factor) mSv CTDIvol has been reviewed. It is below the limits set by the Radiation Protocol Committee (RPC). Dose reduction techniques used: Automated exposure control, adjustment of the mAs and/or kVp according to patient size, standardized low-dose protocol, and/or iterative reconstruction technique. COMPARISON: CT abdomen 11/26/2017. Chest x-ray 12/05/2017. FINDINGS: Pulmonary artery: No filling defects are appreciated within the main, left, right, lobar or visualized segmental pulmonary arteries to suggest embolism. Aorta: The thoracic aorta is not aneurysmal. No evidence for dissection. Lymph nodes: No enlarged axillary, supraclavicular, mediastinal lymph nodes. The left hilar lymphoid tissue is probably prominent but not discrete enough fracture at measurement. Punctate calcified lymph nodes in the right hilum. Thyroid: Normal in size without mass in the visualized parenchyma. Mediastinum: Small amount of fluid in the superior pericardial recess. The heart is normal in size. The esophagus is collapsed Lungs: Right Lung: Noncalcified nodule in the inferior upper lobe abutting the major fissure measures 4 mm. No infiltrates. Left Lung: No infiltrates or nodules. Airways: Patent. Pleura: No pleural effusion or pleural based mass.. Abdomen: No soft tissue mass or lymphadenopathy in the visualized abdomen. Multiple subcentimeter calcified granulomata in the spleen. Bones: No focal osseous lesions. Mild degenerative changes of the spine. Soft tissues: Unremarkable. IMPRESSION: 1. No evidence of pulmonary embolus or aortic dissection. 2. Healed granulomatous inflammation. Noncalcified nodule in the right lung. Recommend annual surveillance with low-dose CT of the chest based on risk factors for malignancy. Signed by: Dr. Kristi Escobedo MD on 12/14/2018 1:14 AM
[2018-12-14] MEDS ORDERED: ASPIRIN 81 MG CHEW TAB PO ONE (02:15)
[2018-12-14] MEDS ORDERED: SODIUM CHLORIDE FLUSH 10 ML SYR INJ PRN (02:15)
[2018-12-14] MEDS ORDERED: ONDANSETRON HCL INJ 2MG/ML 2ML 2 MG/ML VIAL IV PRN (02:15)
[2018-12-14] MEDS ORDERED: FAMOTIDINE 20 MG TAB PO SCH (02:15)
[2018-12-14] MEDS ORDERED: NITROGLYCERIN 0.4 MG SUBL SL PRN (02:15)
[2018-12-14] MEDS ORDERED: MORPHINE SULFATE 2 MG/ML SYR 1ML IV PRN (02:15)
[2018-12-14] MEDS ORDERED: ENOXAPARIN SODIUM INJ 100 MG/ML SYR SC SCH (02:15)
--- NOTE | 2018-12-14 03:22 | NUR ---
RECEIVED PT TO UNIT ROOM 200 VIA STRETCHER AT THIS TIME.PT AAO X 3.NO S/S OF DISTRESS NOTED.RESPIRATIONS EVEN/NON LABORED.PT DENIES ANY CHEST PAIN AT THIS TIME.ORIENTED PT TO ROOM,BATHROOM,CALL LIGHT/TV REMOTE AT THIS TIME.INSTRUCTED PT TO CALL FOR ASSISTANCE NEEDED BY USING CALL LIGHT.PT VERBALIZED UNDERSTANDING. AT BEDSIDE.CALL LIGHT WITHIN EASY REACH.
--- NOTE | 2018-12-14 03:30 | NUR ---
SPOKE WITH ER NURSE LARRY TO VERIFY ORDER REGARDING CT ABD/PELVIS,AND CT ANGIO CHEST.LARRY STATED THAT BOTH THOSE ORDERS ARE CANCELLED PER ER DOCTOR.
--- NOTE | 2018-12-14 03:35 | NUR ---
PT PLACED ON TELE BOX #34,PT RUNNING SINUS RHYTHM 68
[2018-12-14 03:57] VITALS: BP 135/66
[2018-12-14 04:09] VITALS: BP 135/66
[2018-12-14 05:19] VITALS: BP 135/66
[2018-12-14 06:42] LABS: CREATINE KINASE 40 IU/L (29-168)
--- NOTE | 2018-12-14 07:26 | NUR ---
REPORT GIVEN TO ONCOMING NURSE,WALKING ROUNDS MADE.PT RESTING IN BED WITH NO S/S OF DISTRESS.
[2018-12-14 08:02] VITALS: BP 153/75
--- NOTE | 2018-12-14 08:14 | NUR ---
Received patient this morning and no resp distress, denies chest pains at the moment, call light within reach, BP slightly elevated, no consult at this time, patient still to be seen by attending.
[2018-12-14 08:20] VITALS: BP 153/75
[2018-12-14] MEDS ORDERED: ASPIRIN 81 MG ENTERIC COATED PO SCH (09:00)
[2018-12-14] MEDS ORDERED: BACTRIM DS TAB1 EACH PO (09:06)
[2018-12-14] MEDS ORDERED: FLUTICASONE PRO16 GM (09:06)
--- NOTE | 2018-12-14 11:13 | NUR ---
Rounds by Dr. Sweeney and discharged patient today. No prescriptions, provided with discharge summary, patient to f/u with PCP and instructions provided. IV line removed with cath tip in place, dressing applied.
[2018-12-14] MEDS ORDERED: SIMVASTATIN 20 MG TAB PO SCH (21:00)
--- NOTE | 2018-12-15 06:30 | Discharge Summary ---
FINAL DIAGNOSES: 1. Atypical chest pain, most likely reflux. 2. Uncontrolled diabetes, type 2, the patient refused treatment. SUMMARY: A 68-year-old female, discharged from 12/14/2018. The patient does not want any cardiac workup. She also does not want diabetic treatment. The patient stated that her medication had too many side effects, she does not want to take it. Discussed with the patient at length regarding risks and benefits of treatment. The patient is agreeable, but would not want to do that at this time. She wants follow up as an outpatient with her primary care physician or with myself and consider treatment in the future. The symptoms described as epigastric burning sensation and worse when she laid down, brief episode, but then it went away. The patient is asymptomatic now. Again, the patient does not want any treatment or any further workup at this time as she does want to go home. The patient is stable, discharged home, follow up with an outpatient for any further treatment. The patient's spouse is not agreeing with his , but he would like to follow his wishes as well. The patient is stable, discharged today. MD ROSY Lujan/SAURAV /[id number]
== END 2018-12-14 11:06 | disposition home or self-care (01) ==
LOC: FSED 23:22 → ERHOLD 12-14 02:07 → MED/SURG2 12-14 03:19
PROVIDERS: ADMIT Internal Medicine; ATTEND Internal Medicine
DX: R07.89 Other chest pain (principal); E11.65 Type 2 diabetes mellitus with hyperglycemia; I10 Essential (primary) hypertension; K21.9 Gastro-esophageal reflux disease without esophagitis; Z88.5 Allergy status to narcotic agent; Z87.442 Personal history of urinary calculi; Z82.49 Family history of ischemic heart disease and other diseases of the circulatory system; R10.13 Epigastric pain
CPT/HCPCS: 36415; 71260; 80048; 82550; 82553; 84484; 85025; 93005; 99284; G0378; J1644; J1650; Q9967